=== PATIENT | female | born 1995 | race American Indian/Alaskan Native ===

== ENCOUNTER 2017-09-09 03:47 | Emergency (ER) | payer MEDICAID, OTHER ==
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
[2017-09-09 06:56] VITALS: BP 123/77; PULSE 85; RESP 17; TEMP 98.1
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
[2017-09-09 22:41] VITALS: O2SAT 98
== END 2017-09-09 06:57 | disposition home or self-care (01) ==
LOC: C.ER 03:47
DX: S46.911A Strain of unspecified muscle, fascia and tendon at shoulder and upper arm level, right arm, initial encounter (principal); S46.912A Strain of unspecified muscle, fascia and tendon at shoulder and upper arm level, left arm, initial encounter; V49.59XA Passenger injured in collision with other motor vehicles in traffic accident, initial encounter; Y92.410 Unspecified street and highway as the place of occurrence of the external cause